=== PATIENT | male | born 1955 | race American Indian/Alaskan Native ===

== ENCOUNTER 2017-02-07 23:30 | Emergency (ER) | payer MEDICAID ==
[2017-02-07 23:38] VITALS: O2SAT 96
--- NOTE | 2017-02-08 00:39 | C.PDOC ---
History Of Present Illness patient states his hands cramp while using his cane and requests percocet and morphine for his pain. No f/c/n/v. Ambulates with his cane. at bedside Time Seen by Provider: 02/08/17 00:38 Chief Complaint (Nursing): Upper Extremity Problem/Injury History Per: Patient History/Exam Limitations: no limitations Onset/Duration Of Symptoms: Days Current Symptoms Are (Timing): Still Present Quality: Other (cramping) Severity: Mild Pain Scale Rating Of: 2 Exacerbating Factor(s): Strenuous Use Of Affected Area Recent travel outside of the [place]: No Additional History Per: Patient Past Medical History Reviewed: Historical Data, Nursing Documentation, Vital Signs Vital Signs: Last Vital Signs Temp 98.4 F 02/08/17 00:57 Pulse 75 02/08/17 00:57 Resp 20 02/08/17 00:57 BP 103/54 L 02/08/17 00:57 Pulse Ox 96 02/08/17 00:57 - Medical History PMH: Back Problems, HIV Family History: States: No Known Family Hx - Social History Hx Alcohol Use: Yes Hx Substance Use: Yes - Immunization History Hx Tetanus Toxoid Vaccination: No Hx Influenza Vaccination: Yes Hx Pneumococcal Vaccination: Yes Review Of Systems Constitutional: Negative for: Fever, Chills Musculoskeletal: Positive for: Other (hand pain). Negative for: Back Pain Skin: Negative for: Rash Neurological: Negative for: Weakness Psych: Negative for: Anxiety Physical Exam - Physical Exam Appears: Non-toxic, No Acute Distress Skin: Warm, Dry Oral Mucosa: Moist Neck: Supple Cardiovascular: Rhythm Regular Respiratory: No Rales, No Rhonchi, No Wheezing Gastrointestinal/Abdominal: Soft, No Tenderness Extremity: No Tenderness, No Pedal Edema, Other (moves all fingers, good capilary refill) Extremity: Bilateral: Atraumatic Pulses: Left Dorsalis Pedis: Normal, Right Dorsalis Pedis: Normal Neurological/Psych: Oriented x3, Normal Speech Gait: With Assistance (cane, chronic) ED Course And Treatment O2 Sat by Pulse Oximetry: 96 Disposition Counseled Patient/Family Regarding: Studies Performed, Diagnosis, Need For Followup, Rx Given - Disposition Referrals: [facility] [Outside] [facility] [Outside] Disposition: HOME/ ROUTINE Disposition Time: 00:39 Condition: FAIR Prescriptions: traMADol [Ultram] 50 mg PO TID PRN #12 tab PRN Reason: Pain, Severe (8-10) Instructions: Tramadol (By mouth), Arthralgia (ED) Forms: [facility] (Vietnamese) - Clinical Impression Clinical Impression: Hand pain
[2017-02-08 01:03] VITALS: BP 103/54; PULSE 75; RESP 20; TEMP 98.4
== END 2017-02-08 01:05 | disposition home or self-care (01) ==
LOC: C.ER 23:30
DX: M79.642 Pain in left hand (principal); M79.641 Pain in right hand
CPT/HCPCS: 96372; 99285; J1885

== ENCOUNTER 2018-09-26 20:29 | Emergency (ER) | payer MEDICAID ==
[2018-09-26 20:48] VITALS: BP 110/77; PULSE 84; RESP 20; TEMP 98; O2SAT 97
--- NOTE | 2018-09-27 04:07 | C.PDOC ---
History Of Present Illness Patient LWBS from the ED prior to my evaluation. Time Seen by Provider: 09/26/18 21:21 Chief Complaint (Nursing): Lower Extremity Problem/Injury History Per: Patient History/Exam Limitations: other (Patient LWBS from the ED prior to my evaluation. ) Recent travel outside of the [place]: No Additional History Per: Patient Past Medical History Reviewed: Historical Data, Nursing Documentation, Vital Signs Vital Signs: Last Vital Signs Temp 98 F 09/26/18 20:40 Pulse 84 09/26/18 20:40 Resp 20 09/26/18 20:40 BP 110/77 09/26/18 20:40 Pulse Ox 97 09/26/18 20:40 Primary Care Provider: Non [facility] Provider, - Medical History PMH: Back Problems, HIV Surgical History: No Surg Hx Family History: States: Unknown Family Hx - Social History Hx Alcohol Use: Yes Hx Substance Use: Yes (HEROIN) - Immunization History Hx Tetanus Toxoid Vaccination: No Hx Influenza Vaccination: Yes Hx Pneumococcal Vaccination: Yes Review Of Systems Review Of Systems: ROS cannot be obtained secondary to pt's inabilty to answer questions. (LWBS) Physical Exam - Physical Exam Additional Physical Exam Comments: Patient LWBS from the ED prior to my evaluation. ED Course And Treatment O2 Sat by Pulse Oximetry: 97 (ON RA) Pulse Ox Interpretation: Normal Medical Decision Making Medical Decision Making: Patient LWBS from the ED prior to my evaluation. Disposition - Disposition Disposition: LEFT W/O BEING SEEN - ER ONLY Disposition Time: 23:00 Condition: GOOD Forms: [facility] (Maori) - Clinical Impression Clinical Impression: Foot pain - Scribe Statement The provider has reviewed the documentation as recorded by the Scribe Reddy Weller All medical record entries made by the Scribe were at my direction and personally dictated by me. I have reviewed the chart and agree that the record accurately reflects my personal performance of the history, physical exam, medical decision making, and the department course for this patient. I have also personally directed, reviewed, and agree with the discharge instructions and disposition.
== END 2018-09-26 21:21 | disposition left against medical advice (07) ==
LOC: C.ER 20:29
DX: Z02.89 Encounter for other administrative examinations (principal); M79.671 Pain in right foot